=== PATIENT | male | born 1985 | race Two or more races ===

== ENCOUNTER 2025-08-29 07:08 | Emergency (ER) | payer MEDICAID, SELFPAY ==
[2025-08-29] VITALS (7 sets, daily range): BP systolic 98–163; BP diastolic 57–102; PULSE 77–87; RESP 15–21; TEMP 36.8–37.3; O2SAT 95–99; BMI 28.3
--- NOTE | 2025-08-29 07:18 | EKG_ITS ---
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
--- NOTE | 2025-08-29 07:18 | PC.NURSE ---
DR. CROWE ASSESSING PT AT THIS TIME; PER DR. CROWE, NO STROKE ALERT.
--- NOTE | 2025-08-29 07:44 | XR_ITS ---
Exam: Chest 1 view, AP Date and time of exam: 08/29/2025, 7:46 a.m. Comparison: None INDICATION: Chest pain Findings: Normal heart size. No mediastinal adenopathy. No acute fracture No pulmonary edema or pneumonia. Impression: No active disease.
--- NOTE | 2025-08-29 07:45 | EDRME_ITS ---
Rapid Medical Screening Exam [facility] Arrival date/time: 08/29/25 07:08 This is a 39-year-old male that comes into the emergency room with complaints of chest pain. Patient states that he recently went to the dentist and was told that his gums were infected and he needed to have a lot of his teeth pulled. Patient states that they gave him antibiotics, Augmentin and told him to come back in 2 weeks after he finished the antibiotics. Per patient he started taking the Augmentin and he started having chest pain when he took it. Patient is no longer taking the Augmentin and did not take his last 2 doses. He states that chest pain is really bothering him and he cannot sleep. Patient describes it as a chest pressure that does not get better with any intervention. Patient also complaints of bodyaches. Patient denies any past medical history. I have greeted and performed a focused initial assessment of this patient. Initial appropriate labs ordered at this time. A comprehensive ED assessment and evaluation of the patient and analysis of all test and completion of medical decision making process will be conducted by additional ED provider. Chief Complaint: Flu Like Symptoms Time Seen by Provider: 08/29/25 07:19 Vital signs: Vital Signs Temperature 98.7 F 08/29/25 07:18 Pulse Rate 79 08/29/25 07:18 Respiratory Rate 15 08/29/25 07:18 Blood Pressure 142/95 H 08/29/25 07:18 Pulse Oximetry (%) 97 08/29/25 07:18 Oxygen Delivery Method Room Air 08/29/25 07:18
[2025-08-29 08:40] LABS: Influenza A Ag Negative; Influenza B Ag Negative
[2025-08-29 08:44] LABS: Basophils # (Auto) 0.0 Thou/mm3 (0.0-0.2); Basophils % (Auto) 0 % (0-2.5); Eosinophils # (Auto) 0.8 Thou/mm3 (0.0-0.5); Eosinophils % (Auto) 3 % (0-10); Hematocrit 47.2 % (41.0-53.0); Hemoglobin 16.3 g/dL (13.5-16.0); Immature Granulocytes Auto 3.84 Thou/mm3 (0.00-0.00); Lymphocytes # (Auto) 3.7 Thou/mm3 (1.0-4.8); Lymphocytes % (Auto) 12 % (10-50); Mean Corpuscular HGB Conc 34.5 g/dl (31.0-37.0); Mean Corpuscular Hemoglobin 30.3 pg (25.0-35.0); Mean Corpuscular Volume 88 fL (80-100); Monocytes # (Auto) 5.6 Thou/mm3 (0.0-0.8); Monocytes % (Auto) 18 % (0-12); Neutrophils # (Auto) 16.6 Thou/mm3 (1.8-7.7); Neutrophils % (Auto) 54 % (37-80); Nucleated Red Blood Cell # 0.03 Thou/mm3 (0.00-0.00); Nucleated Red Blood Cell % 0 /100 WBC (0); Platelet Count 97 Thou/mm3 (140-440); RDW Standard Deviation 45.1 fL (35.1-43.9); Red Blood Count 5.38 Miln/mm3 (4.50-5.90); White Blood Count 30.6 Thou/mm3 (3.8-10.6)
[2025-08-29 08:50] LABS: B-Type Natriuretic Peptide 26 pg/mL (0-100)
[2025-08-29 08:52] LABS: Alanine Aminotransferase 75 U/L (10-49); Albumin, Serum 4.8 gm/dL (3.5-5.0); Albumin/Globulin Ratio 2.0 (1.2-2.2); Alkaline Phosphatase 360 U/L (46-116); Anion Gap 12 (7-16); Aspartate Amino Transferase 116 U/L (0-34); BUN/Creatinine Ratio 8 Ratio (12-20); Bilirubin,Total 0.5 mg/dL (0.3-1.2); Blood Urea Nitrogen 9 mg/dL (9-23); Calcium 9.7 mg/dL (8.3-10.6); Calcium (Corrected) 9.7 mg/dL (8.5-10.1); Carbon Dioxide 26.4 mMol/L (20.0-31.0); Chloride 105 mMol/L (98-107); Creatinine (Component) 1.2 mg/dL (0.6-1.3); Estimated Creatinine Clearance 77.6 mL/min (>60); Globulin 2.4 gm/dL (2.3-3.5); Glucose 95 mg/dL (74-106); Osmolality,Calculated 283 (275-295); Potassium 4.1 mMol/L (3.4-5.1); Sodium 143 mMol/L (136-145); Total Protein 7.2 gm/dL (5.7-8.2); Troponin I < 0.002 ng/mL (0.0-0.045); eGFR > 60 See Note
[2025-08-29 09:17] LABS: Band Neutrophils (Manual) 16 % (0-6); Basophils (Manual) 1 % (0-2); Eosinophils (Manual) 2 % (0-4); Lymphocytes (Manual) 17 % (20-44); Metamyelocytes (Manual) 6 % (0-0); Monocytes (Manual) 3 % (2-9); Neutrophils (Manual) 55 % (50-70)
[2025-08-29 09:18] LABS: Atypical Lymphs Few
[2025-08-29 09:21] LABS: Path Review Blood Smear Sent to Pathologist
--- NOTE | 2025-08-29 11:08 | PD.EDDENTL ---
ED Dental RME/HPI General Chief complaint: Flu Like Symptoms Stated complaint: GENERALIZED BODY ACHES x5DAYS; NUMB TO LIPS YEST. Time Seen by Provider: 08/29/25 07:19 Arrival date/time: 08/29/25 07:08 RME / HPI RME / HPI Narrative: 08/29/25 07:08 This is a 39-year-old male that comes into the emergency room with complaints of chest pain. Patient states that he recently went to the dentist and was told that his gums were infected and he needed to have a lot of his teeth pulled. Patient states that they gave him antibiotics, Augmentin and told him to come back in 2 weeks after he finished the antibiotics. Per patient he started taking the Augmentin and he started having chest pain when he took it. Patient is no longer taking the Augmentin and did not take his last 2 doses. He states that chest pain is really bothering him and he cannot sleep. Patient describes it as a chest pressure that does not get better with any intervention. Patient also complaints of bodyaches. Patient denies any past medical history. I have greeted and performed a focused initial assessment of this patient. Initial appropriate labs ordered at this time. A comprehensive ED assessment and evaluation of the patient and analysis of all test and completion of medical decision making process will be conducted by additional ED provider. DR. PAUL MAIN ED EVALUATION: 39-year-old male with no known past medical history aside from dental issues presents to the Emergency Department accompanied by his for worsening gum pain and swelling. Symptoms have been present for approximately 3 weeks, with increased pain today. The patient was evaluated by a dentist who performed dental X-rays and reportedly stated that his gums were damaged and he might lose several teeth. Oral antibiotics were prescribed, after which the patient developed a diffuse body rash, primarily on the knees. He denies sore throat, cough, fever, chills, or difficulty swallowing. Related Data Previous Rx's ?Medication ?Instructions ?Recorded clindamycin HCl 300 mg capsule 300 mg PO TID #20 caps 08/29/25 (Cleocin HCl) hydrocodone 5 mg-acetaminophen 325 1 tab PO Q6H PRN pain #10 tabs 08/29/25 mg tablet ibuprofen 600 mg tablet 600 mg PO Q6H PRN pain #30 tabs 08/29/25 Allergies Allergy/AdvReac Type Severity Reaction Status Date / Time No Known Allergies Allergy Verified 08/29/25 07:14 Review of Systems Review of Systems Systems Reviewed: All systems reviewed, normal except as documented Past Medical History Social History SMOKING STATUS: Never smoker SUBSTANCE USE: does not use ALCOHOL: Never ED Exam Narrative Physical exam: GENERAL APPEARANCE: alert and oriented x 4, well-developed, well-nourished, no acute distress VITALS: All vitals were reviewed and the pulse ox is 96% on room air, which is normal according to my interpretation. HEENT: Normocephalic, atraumatic; pupils equal, round, reactive to light; EOMI; mucous membranes pink and moist; oropharynx clear; cavitation noted on upper right tooth, broken tooth on lower right, diffuse gum recession and swelling with exposed tooth root on the lower left; right-sided cervical lymphadenopathy present. NECK: Supple LUNGS: CTABL; no wheezes, no rales, no rhonchi HEART: Regular rate, regular rhythm; normal S1, S2; no murmurs ABDOMEN: non distended; normal BS; soft, no tenderness, no guarding, no rebound; no masses, no organomegaly, no hernia BACK: no CVA tenderness EXTREMITIES: atraumatic; no edema NEUROLOGIC: awake; alert and oriented x4; cranial nerves II-XII grossly intact; no focal sensory or motor deficits PSYCHIATRIC: appropriate mood and affect SKIN: warm, dry, normal color; no rashes Course Quality Measures none Orders Category Date Time Status Bedside COVID-19 Antigen Test NOW Care 08/29/25 07:[address] Screening NOW Care 08/29/25 11:11 Active EKG (ED ONLY) *Do not use* NOW Care 08/29/25 07:[address] soft tissue neck w con Stat Exams 08/29/25 11:11 Completed EKG (ED Only) Stat Exams 08/29/25 07:18 Draft XR chest 1V Stat Exams 08/29/25 07:44 Completed Alcohol, Blood Medical Stat Lab 08/29/25 11:10 Completed BNP [B-Type Natriuretic Peptide] Stat Lab 08/29/25 08:24 Completed Blood Culture (Lab) Stat Lab 08/29/25 11:15 Received CBC Stat Lab 08/29/25 08:24 Completed Comprehensive Metabolic Panel Stat Lab 08/29/25 08:24 Completed Drug Screen,Urine Stat Lab 08/29/25 11:31 Completed Influenza A & B Rapid Panel Stat Lab 08/29/25 07:50 Completed Lactate (Lactic Acid) Stat Lab 08/29/25 11:10 Completed [place] Screen Stat Lab 08/29/25 08:[address] Review Blood Smear Stat Lab 08/29/25 08:24 Completed Procalcitonin Stat Lab 08/29/25 11:10 Completed Troponin I Stat Lab 08/29/25 08:24 Completed UA, C/S IF [Urinalysis, C/S if Indicated] Stat Lab 08/29/25 11:34 Completed Clindamycin 900Mg Ivpb [Cleocin/D5w Ivpb] 900 mg Med 08/29/25 11:07 Discontinued Pre-Mixed [Pre-mixed Bag] 1 bag IV X1 Morphine* Inj Med 08/29/25 11:12 Discontinued 4 mg IVP X1 ONE Morphine* Inj Med 08/29/25 15:36 Discontinued 4 mg IVP X1 ONE Ondansetron Inj [Zofran Inj] Med 08/29/25 11:12 Discontinued 4 mg IVP X1 ONE Ondansetron Inj [Zofran Inj] Med 08/29/25 15:36 Discontinued 4 mg IVP X1 ONE Vital Signs Vital signs: Vital Signs Temperature 98.7 F 08/29/25 07:18 Pulse Rate 79 08/29/25 07:18 Respiratory Rate 15 08/29/25 07:18 Blood Pressure 142/95 H 08/29/25 07:18 Pulse Oximetry (%) 97 08/29/25 07:18 Oxygen Delivery Method Room Air 08/29/25 07:18 Dental / Oral MDM Narrative MDM Narrative:: IPilar am scribing for and in the presence of Dr. Paul. Patient data External records reviewed:: [facility] previous records Clinical information provided by:: patient and spouse Social determinants that could affect healthcare access:: none Patient has the following chronic illnesses:: No known past medical history aside from dental issues. How is presenting disease/condition affected by chronic disease/condition?: no chronic disease Evaluation data The following diagnostics were reviewed and interpreted by me:: lab results, radiology exam(s) and EKG tracing(s) (My interpretation: EKG performed at 0723 hours, sinus rhythm, rate 86, no acute ischemic changes) Lab and/or radiology exams considered but not ordered:: none Interpretation Summary: WBC elevated RADIOLOGY Procedure(s): XR chest 1V Accession Number(s): [id number] cc: Adrián Dunlap MD; Cameron Freire MD; Fina Morrell NP~ Exam: Chest 1 view, AP Date and time of exam: 08/29/2025, 7:46 a.m. Comparison: None INDICATION: Chest pain Findings: Normal heart size. No mediastinal adenopathy. No acute fracture No pulmonary edema or pneumonia. Impression: No active disease. Dictated By: Adrián Dunlap MD Procedure(s): CT soft tissue neck w con Accession Number(s): [id number] cc: Cameron Freire MD; Olaf Shen MD; Rosalinda Paul MD~ Examination: CT soft tissue neck, with intravenous contrast. 2-D coronal reconstructions. 2-D sagittal reconstructions. Date and time of exam : August 29, 2025, 12:18 p.m. INDICATIONS: Sores on the bottom the top of the mouth 3 weeks. CTDI: vol (mGy): 13.9 DLP: (mGycm): 423 Technique: 1.25 mm axial sections of the neck of the obtained. Coronal and sagittal reconstructions have been obtained. Intravenous contrast administered 60 cc Isovue-370. Low dose protocols were performed. One or more of the following dose reduction techniques were used; automated exposure control, adjustment of the mA and/or KV according to patient size, use of iterative reconstruction technique. Findings: Symmetrical nasopharynx oropharynx No tonsillar abscess Minimal chronic left maxillary sinusitis Mild soft tissue tonsillar hypertrophy. Supraglottic region unremarkable Left true and false vocal cord appear mildly prominent No thyroid mass Lung apices clear Normal epiglottis IMPRESSION: No enhancing nasopharyngeal or oropharyngeal mass, no tonsillar abscess Normal epiglottis Mild edema involving the left true and false vocal cord, clinical correlation advised, recommend direct inspection Dictated By: Olaf Shen MD Medications / Prescriptions Medications or Prescriptions considered but not ordered:: none Medication administrations:: Medication Administration History Discontinued Medications Clindamycin Phosphate 900 mg/ (IV Miscellaneous Supplies) 50 mls @ 50 mls/hr IV X1 ONE Stop: 08/29/25 12:06 Last Infusion: 08/29/25 13:32 Dose: Infused Documented By: Admin: 08/29/25 11:22 Dose: 50 mls/hr Documented By: BY Morphine Sulfate (Morphine Sulf Inj 4 Mg/Ml Vial) 4 mg IVP X1 ONE Stop: 08/29/25 11:13 Last Admin: 08/29/25 11:22 Dose: 4 mg Documented By: BY Morphine Sulfate (Morphine Sulf Inj 4 Mg/Ml Vial) 4 mg IVP X1 ONE Stop: 08/29/25 15:37 Ondansetron HCl (Ondansetron Inj 2 Mg/Ml Inj 2 Ml) 4 mg IVP X1 ONE Stop: 08/29/25 11:13 Last Admin: 08/29/25 11:22 Dose: 4 mg Documented By: BY Ondansetron HCl (Ondansetron Inj 2 Mg/Ml Inj 2 Ml) 4 mg IVP X1 ONE Stop: 08/29/25 15:37 see above Consultations Consultation(s) initiated? (list below): No Diagnosis Dental Differential Diagnosis: other (Gingivitis, dental abscess, and antibiotic-induced allergic reaction.) Most likely diagnosis given after review of the tests above:: Dental caries Tooth pain Gingival recession Admission Indicated Admission indicated?: not indicated Admission Request Was there a request for admission?: No Disposition Plan Disposition Plan: Discharge Discharge Attestation Discharge Attestation: The patient and all family members were given an opportunity to ask questions and understood the discharge instructions. Discharge instructions specifically effects, indications for sooner follow up or return to the emergency department, and the expected course of current diagnosis. Patient condition: Stable Discharge Plan Plan Patient Disposition: HOME (Self Care) Prescriptions/Referrals Prescriptions/Med Rec: New clindamycin HCl [Cleocin HCl] 300 mg capsule 300 mg PO TID Qty: 20 0RF hydrocodone-acetaminophen 5-325 mg tablet 1 tab PO Q6H MDD 9 PRN (Reason: pain) Qty: 10 0RF ibuprofen 600 mg tablet 600 mg PO Q6H PRN (Reason: pain) Qty: 30 0RF Referrals: Cameron Freire MD [Primary Care Provider, Family Practice] - In 1 week Problem List Clinical Impression: Dental caries, Tooth pain, Gingival recession Patient/Caregiver Discharge Instructions Education Materials: ED Dental Pain, ED Dental Cavity Print Language: Slovak Stand Alone Forms: Princess Award Info., Patient Portal Info Letter
--- NOTE | 2025-08-29 11:11 | XR_ITS ---
Examination: CT soft tissue neck, with intravenous contrast. 2-D coronal reconstructions. 2-D sagittal reconstructions. Date and time of exam : August 29, 2025, 12:18 p.m. INDICATIONS: Sores on the bottom the top of the mouth 3 weeks. CTDI: vol (mGy): 13.9 DLP: (mGycm): 423 Technique: 1.25 mm axial sections of the neck of the obtained. Coronal and sagittal reconstructions have been obtained. Intravenous contrast administered 60 cc Isovue-370. Low dose protocols were performed. One or more of the following dose reduction techniques were used; automated exposure control, adjustment of the mA and/or KV according to patient size, use of iterative reconstruction technique. Findings: Symmetrical nasopharynx oropharynx No tonsillar abscess Minimal chronic left maxillary sinusitis Mild soft tissue tonsillar hypertrophy. Supraglottic region unremarkable Left true and false vocal cord appear mildly prominent No thyroid mass Lung apices clear Normal epiglottis IMPRESSION: No enhancing nasopharyngeal or oropharyngeal mass, no tonsillar abscess Normal epiglottis Mild edema involving the left true and false vocal cord, clinical correlation advised, recommend direct inspection
[2025-08-29] MEDS: CLINDAMYCIN 900MG IVPB 900 MG in PRE-MIXED 1 BAG 50 MG IV (11:22)
[2025-08-29] MEDS: MORPHINE SULF INJ 4 MG/ML VIAL IVP ×2 (11:22→15:49)
[2025-08-29] MEDS: ONDANSETRON INJ 2 MG/ML INJ 2 ML 4 MG IVP ×2 (11:22→15:49)
[2025-08-29 11:24] LABS: Lactate (Lactic Acid) 1.0 mMol/L (0.4-2.0)
[2025-08-29 11:43] LABS: Collection Type, Urine Clean Catch; Squamous Epithelial Cell,Urine 0 /hpf (0-5)
[2025-08-29 11:54] LABS: Bilirubin,Urine Negative (Negative); Blood,Urine Trace (Negative); Clarity,Urine Clear (Clear/Hazy); Color,Urine Lt-Yellow (Lt Yel-Yel); Culture Indicated,Urine Not Indicated; Glucose, Urine Negative (Negative); Ketones,Urine Negative (Negative); Leukocyte Esterase,Urine Negative (Negative); Nitrite,Urine Negative (Negative); PH,Urine 6.0 (5.0-7.0); Protein,Urine Negative (Neg - Trace); RBC,Urine 2 /hpf (0-3); Specific Gravity,Urine 1.012 (1.001-1.035); Urobilinogen,Urine Negative mg/dL (0.0-1.0); WBC,Urine 1 /hpf (0-5)
[2025-08-29 12:00] LABS: Amphetamine/Methamp Scrn,U Negative (Negative); Barbiturate Screen,Urine Negative (Negative); Benzodiazepines Screen,Urine Negative (Negative); Benzoylecgonine Screen, Ur Negative (Negative); Fentanyl Screen,Urine Negative (Negative); Opiate Screen,Urine Negative (Negative); THC Screen,Urine Negative (Negative)
[2025-08-29 12:25] LABS: Alcohol, Blood Medical < 3.0 mg/dL (0-10.0)
[2025-08-29 12:33] LABS: Procalcitonin 0.16 ng/ml (0.0-0.49)
[2025-08-30 19:11] LABS: Mono Screen Negative (Negative)
== END 2025-08-29 16:01 | disposition home or self-care (01) ==
PROVIDERS: Nurse Practitioner Family; Emergency Provider Emergency Medicine; PCP Family Medicine
DX: K02.9 Dental caries, unspecified (principal); K05.10 Chronic gingivitis, plaque induced
CPT/HCPCS: 36415; 70491; 71045; 80053; 80307; 80320; 81001; 83605; 83880; 84145; 84484; 85025; 86308; 87040; 87502; 87811; 93005; 96365; 96366; 96375; 96376; 99284; A4649; J0736; J2270; J2405; Q9967; G0480

== ENCOUNTER 2025-09-02 03:13 | Emergency (ER) | payer MEDICAID, SELFPAY ==
[2025-09-02] VITALS (15 sets, daily range): BP systolic 138–176; BP diastolic 87–113; PULSE 83–115; RESP 14–23; TEMP 36.4–37; O2SAT 95–98; BMI 28.6
--- NOTE | 2025-09-02 03:18 | EKG_ITS ---
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
--- NOTE | 2025-09-02 03:57 | XR_ITS ---
EXAMINATION: AP chest single view TECHNIQUE: AP portable upright chest single view Date and time: September 02, 2025, 0415 hours, comparison August 29, 2025 INDICATION: Chest pain today. FINDINGS: Poor inspiratory effort Normal heart size No lobar pneumonia or pulmonary edema IMPRESSION: Poor inspiratory effort chest x-ray
--- NOTE | 2025-09-02 03:57 | EKG_ITS ---
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
[2025-09-02 04:14] LABS: Basophils # (Auto) 0.1 Thou/mm3 (0.0-0.2); Basophils % (Auto) 0 % (0-2.5); Eosinophils # (Auto) 0.7 Thou/mm3 (0.0-0.5); Eosinophils % (Auto) 3 % (0-10); Hematocrit 40.2 % (41.0-53.0); Hemoglobin 14.3 g/dL (13.5-16.0); Immature Granulocytes Auto 2.14 Thou/mm3 (0.00-0.00); Lymphocytes # (Auto) 6.9 Thou/mm3 (1.0-4.8); Lymphocytes % (Auto) 25 % (10-50); Mean Corpuscular HGB Conc 35.6 g/dl (31.0-37.0); Mean Corpuscular Hemoglobin 29.8 pg (25.0-35.0); Mean Corpuscular Volume 84 fL (80-100); Monocytes # (Auto) 9.3 Thou/mm3 (0.0-0.8); Monocytes % (Auto) 33 % (0-12); Neutrophils # (Auto) 9.0 Thou/mm3 (1.8-7.7); Neutrophils % (Auto) 32 % (37-80); Nucleated Red Blood Cell # 0.00 Thou/mm3 (0.00-0.00); Nucleated Red Blood Cell % 0 /100 WBC (0); RDW Standard Deviation 42.6 fL (35.1-43.9); Red Blood Count 4.80 Miln/mm3 (4.50-5.90); White Blood Count 28.0 Thou/mm3 (3.8-10.6)
[2025-09-02] MEDS: MORPHINE SULF INJ 4 MG/ML VIAL IVP ×3 (04:32→13:32)
[2025-09-02 04:36] LABS: Alanine Aminotransferase 153 U/L (10-49); Albumin, Serum 4.5 gm/dL (3.5-5.0); Albumin/Globulin Ratio 2.3 (1.2-2.2); Alkaline Phosphatase 462 U/L (46-116); Anion Gap 14 (7-16); Aspartate Amino Transferase 164 U/L (0-34); BUN/Creatinine Ratio 7 Ratio (12-20); Bilirubin,Total 1.6 mg/dL (0.3-1.2); Blood Urea Nitrogen 21 mg/dL (9-23); Calcium 9.6 mg/dL (8.3-10.6); Calcium (Corrected) 9.6 mg/dL (8.5-10.1); Carbon Dioxide 21.1 mMol/L (20.0-31.0); Chloride 101 mMol/L (98-107); Creatinine (Component) 2.9 mg/dL (0.6-1.3); Estimated Creatinine Clearance 32.3 mL/min (>60); Globulin 2.0 gm/dL (2.3-3.5); Glucose 139 mg/dL (74-106); Osmolality,Calculated 276 (275-295); Potassium 4.3 mMol/L (3.4-5.1); Sodium 136 mMol/L (136-145); Total Protein 6.5 gm/dL (5.7-8.2); Troponin I < 0.002 ng/mL (0.0-0.045); eGFR 27 See Note
[2025-09-02 05:04] LABS: Platelet Count 6 Thou/mm3 (140-440)
[2025-09-02 05:06] LABS: Band Neutrophils (Manual) 4 % (0-6); Eosinophils (Manual) 3 % (0-4); Lymphocytes (Manual) 5 % (20-44); Metamyelocytes (Manual) 1 % (0-0); Monocytes (Manual) 6 % (2-9); Myelocytes (Manual) 2 % (0-0); Neutrophils (Manual) 53 % (50-70)
[2025-09-02 05:08] LABS: Other Cell Type 26.0 %
[2025-09-02 05:09] LABS: Basophils (Manual) 0 % (0-2)
[2025-09-02 05:10] LABS: Path Review Blood Smear Sent to Pathologist; Slide Review Platelets confirmed
--- NOTE | 2025-09-02 06:21 | XR_ITS ---
Examination: CT chest, without intravenous contrast. CT abdomen, without intravenous contrast. CT pelvis, without intravenous contrast. 2-D sagittal and coronal reconstructions. 3-D reconstructions. Date and time of exam: September 02, 2025, 0645 hours INDICATIONS: Onset chest and abdominal pain today CTDI vol (mgy) 6.66 DLP (MGycm) 506 Technique: Multiple CT images, 3.0 mm slice thickness, obtained chest, abdomen, pelvis, with the high-resolution 64 slice scanner.. Sagittal and coronal 2-D reconstructions are obtained. 3-D reconstructions Low dose protocols were performed. One or more of the following dose reduction techniques were used; automated exposure control, adjustment of the mA and/or KV according to patient size, use of iterative reconstruction technique. Findings: No thoracic aortic aneurysmal dilatation Pulmonary artery segments do not show significant enlargement No paratracheal tracheobronchial or bronchopulmonary adenopathy No lobar pneumonia or pulmonary edema Hepatomegaly 23 cm Splenomegaly 16 cm Liver is irregular in contour No gallstones No pancreatic or adrenal mass No renal or ureteral calculi, no hydronephrosis Small para-aortic and pelvic lymph nodes, the largest para-aortic lymph node is 9 mm, left common iliac lymph node 6 mm Normal appendix No bowel obstruction Urinary bladder intact No prostatomegaly Large right and small left fat-containing inguinal hernias Mild osteopenia IMPRESSION: No mediastinal lymphadenopathy No pneumonia, pulmonary edema or pleural disease Marked hepatosplenomegaly, liver is irregular in contour Small abdominal and pelvic lymph nodes Differential would include cirrhosis, but also Hodgkin's disease non-Hodgkin's lymphoma, consider PET CT scan follow-up
[2025-09-02] MEDS: MORPHINE SULF INJ 4 MG/ML VIAL 2 MG IVP (06:23)
[2025-09-02] MEDS: NITROGLYCERIN 0.4 MG SUBL BTL #25 SL (06:29)
[2025-09-02] MEDS: ONDANSETRON INJ 2 MG/ML INJ 2 ML 4 MG IVP ×2 (06:32→13:32)
[2025-09-02 06:33] LABS: Lactate (Lactic Acid) 1.2 mMol/L (0.4-2.0)
[2025-09-02 07:02] LABS: D-Dimer 2150 ng/mL (<600)
[2025-09-02 07:11] LABS: Fibrinogen 451 mg/dL (175-375); INR 1.2 (0.9-1.3); Lipase 32 U/L (12-53); Magnesium 1.8 mg/dL (1.6-2.6); Partial Thromboplastin Time 34.7 Seconds (22.0-36.0); Procalcitonin 0.46 ng/ml (0.0-0.49); Prothrombin Time 12.4 Seconds (9.0-12.2); Troponin I < 0.002 ng/mL (0.0-0.045)
[2025-09-02] MEDS: SODIUM CHLORIDE 0.9% 1000 ML 1,000 ML 999 ML IV (07:25)
[2025-09-02 08:43] LABS: Phosphorous 4.4 mg/dL (2.4-5.1)
[2025-09-02 08:47] LABS: Uric Acid 16.2 mg/dL (3.7-9.2)
[2025-09-02 09:15] LABS: Influenza A Ag Negative; Influenza B Ag Negative
[2025-09-02 09:16] LABS: LDH (Lactate Dehydrogenase) > 4500 U/L (120-246)
--- NOTE | 2025-09-02 10:25 | EDNOTE_ITS ---
ED Chest Pain RME/HPI General Chief Complaint: Chest Pain Stated Complaint: Chest Pain-2 days ago diagnosed with leukemia Time Seen by Provider: 09/02/25 06:07 Arrival date/time: 09/02/25 03:13 RME / HPI RME / HPI narrative: 39 year old male with no known chronic medical history presents to the ED for evaluation of substernal chest pain beginning 5 days ago. Pain described as pressure in sensation, rating 8/10 in severity. Patient states the chest pain began shortly after starting Augmentin, that was prescribed by dentist for gum infection, and did not complete due to the chest pain. Patient states he was evaluated here 4 days ago for worsening gum pain and swelling and during that time also had some chest pain. Denies fevers. Related Data Previous Rx's ?Medication ?Instructions ?Recorded clindamycin HCl 300 mg capsule 300 mg PO TID #20 caps 08/29/25 (Cleocin HCl) hydrocodone 5 mg-acetaminophen 325 1 tab PO Q6H PRN pa in #10 tabs 08/29/25 mg tablet ibuprofen 600 mg tablet 600 mg PO Q6H PRN pain #30 t abs 08/29/25 Allergies Allergy/AdvReac Type Severity Reaction Status Date / Time clindamycin Allergy Severe bleeding Verified 09/02/25 13:29 amoxicillin Allergy Intermediate Hives Verified 09/02/25 13:29 hydrocodone Allergy Intermediate Chest Pain Verified 09/02/25 13:29 Review of Systems Review of Systems Systems Reviewed: All systems reviewed, normal except as documented Past Medical History Past Medical History NEUROLOGIC: Negative Neurological Disorders CARDIAC: Negative Cardiac Disorders RESPIRATORY: Negative Respiratory Disorders GASTROINTESTINAL: Negative Gastrointestinal Disorders GENITOURINARY: Negative Genitourinary Disorders MUSCULOSKELETAL: Negative Musculoskeletal Disorders ENT: Negative History of ENT Problems ENDOCRINE: Negative Endocrine Disorders HEMATOLOGIC: Negative Blood Disorders Surgical History SURGICAL: Negative Endocrine Surgery or Nephrectomy Social History SMOKING STATUS: Former smoker SUBSTANCE USE: does not use ED Exam Narrative Physical exam: GENERAL APPEARANCE: alert and oriented x 4, well-developed, well-nourished, no acute distress HEENT: Normocephalic, atraumatic; pupils equal, round, reactive to light; EOMI; mucous membranes pink, moist; oropharynx clear NECK: Supple LUNGS: CTABL; no wheezes, no rales, no rhonchi HEART: Regular rate, regular rhythm; normal S1, S2; no murmurs ABDOMEN: non distended; normal BS; soft, no tenderness, no guarding, no rebound; no masses, no organomegaly, no hernia BACK: no CVA tenderness EXTREMITIES: atraumatic; no edema NEUROLOGIC: awake; alert and oriented x4; cranial nerves II-XII grossly intact; no focal sensory or motor deficits PSYCHIATRIC: appropriate mood and affect SKIN: warm, pale, diaphoretic; diffuse petechiae Course Course Course Narrative: 39 year old male presented to the ED today for chest pain. Patient was evaluated here on 08/29/2025 and during that time labs showed WBC was 30, Plt count 97 and blood was sent to pathology for blood smear. The pathology report for 08/29/2025 shows blasts appearing cells accounting for 22% of the WBCs suspicious for acute/chronic leukemia. Repeat blood work today shows WBC 28 and Plt count is 6. The blood smear performed today showing blasts are accounting for 27% of the WBCs most consistent with acute leukemia. FFP and PRBC ordered. 0730: I spoke with oyster worker Dr. Li. Discussed patients PMHx, HPI, ED course, exam findings, labs results. Will come evaluate the patient. 1100: Called by pathologist who relayed blood smear pathology report as noted above. 1102: I spoke with ICU team who advised the patient can be admitted to the hospitalist team and if needed can place a dialysis catheter for dialysis. I spoke with hospitalist team A for admission. 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 1128: I spoke with our transfer nurse who will begin the transfer. 1132: I called and left message for our local scientific database curator Dr. Larson. 1133: I called oncologist Dr. Myrick, no answer and voicemail box is full. 1136: I spoke with scientific database curator Dr. Larson. States we do not treat leukemia here and will require transfer. 1152: I spoke with transfer nurse Evon at [facility]. Discussed patients PMHx, HPI, ED course, exam findings, labs results. 1255: I had a long discussion with patient and at bedside. We reviewed todays results and plan to transfer. They are in agreement. 1300: Notified by transfer nurse that the patient has been accepted by Dr. Griffin, ER to ER. Quality Measures none Orders Category Date Time Status Bedside COVID-19 Antigen Test NOW Care 09/02/25 06:28 Active EKG (ED ONLY) *Do not use* NOW Care 09/02/25 03:18 Completed EKG (ED ONLY) *Do not use* NOW Care 09/02/25 03:57 Completed EKG (ED ONLY) *Do not use* NOW Care 09/02/25 06:16 Completed Referral - Pc Installation Engineer Stat Cons 09/02/25 11:[address] chest abdomen pelvis wo Stat Exams 09/02/25 06:21 Completed EKG (ED Only) Stat Exams 09/02/25 03:18 Draft EKG (ED Only) Stat Exams 09/02/25 03:57 Draft EKG (ED Only) Stat Exams 09/02/25 06:15 Ordered XR chest 1V portable Stat Exams 09/02/25 03:57 Completed CBC Stat Lab 09/02/25 04:00 Completed CMP [Comprehensive Metabolic Panel] Stat Lab 09/02/25 04:00 Completed D-Dimer Stat Lab 09/02/25 04:00 Completed FFP [Fresh Frozen Plasma] Stat Lab 09/02/25 07:21 Completed FLU A&B [Influenza A & B Rapid Panel] Stat Lab 09/02/25 08:32 Completed Fibrinogen Stat Lab 09/02/25 06:26 Completed Haptoglobin* Stat Lab 09/02/25 08:21 Received LDH (Lactate Dehydrogenase) Stat Lab 09/02/25 06:26 Completed Lactate (Lactic Acid) Stat Lab 09/02/25 06:26 Completed Lipase Stat Lab 09/02/25 06:26 Completed Magnesium Stat Lab 09/02/25 06:26 Completed PT [Prothrombin Time with INR] Stat Lab 09/02/25 06:26 Completed PTT [Partial Thromboplastin Time] Stat Lab 09/02/25 06:26 Completed Path Review Blood Smear Stat Lab 09/02/25 04:00 Completed Pheresis Platelets Stat Lab 09/02/25 07:21 Completed Phosphorous Stat Lab 09/02/25 06:26 Completed Procalcitonin Stat Lab 09/02/25 06:26 Completed Troponin I Stat Lab 09/02/25 04:00 Completed Troponin I Stat Lab 09/02/25 06:26 Completed Type and Screen Stat Lab 09/02/25 07:21 Completed UA, C/S IF [Urinalysis, C/S if Indicated] Stat Lab 09/02/25 10:18 Completed Uric Acid Stat Lab 09/02/25 06:26 Completed Urine Culture Stat Lab 09/02/25 10:18 Received Morphine* Inj Med 09/02/25 06:15 Discontinued 2 mg IVP X1 ONE Morphine* Inj Med 09/02/25 04:09 Discontinued 4 mg IVP X1 ONE Morphine* Inj Med 09/02/25 08:00 Discontinued 4 mg IVP X1 ONE Morphine* Inj Med 09/02/25 13:24 Once 4 mg IVP X1 ONE Nitroglycerin [Nitrostat 1/150] Med 09/02/25 06:15 Discontinued 0.4 mg SL X1 ONE Ondansetron Inj [Zofran Inj] Med 09/02/25 06:15 Discontinued 4 mg IVP X1 ONE Ondansetron Inj [Zofran Inj] Med 09/02/25 13:24 Once 4 mg IVP X1 ONE Sodium Chloride 0.9% 1000 ml [Ns] 1,000 ml Med 09/02/25 06:23 Discontinued IV 999 mls/hr Vital Signs Vital signs: Vital Signs Temperature 97.8 F 09/02/25 03:37 Pulse Rate 95 09/02/25 03:37 Respiratory Rate 23 H 09/02/25 03:37 Blood Pressure 138/99 H 09/02/25 03:37 Pulse Oximetry (%) 96 09/02/25 03:37 Oxygen Delivery Method Room Air 09/02/25 03:37 Pulse ox is 96% on room air which is adequate. Chest Pain MDM Narrative MDM Narrative:: Sachi León am scribing for and in the presence of Dr. Paul. Patient data External records reviewed:: [facility] previous records Clinical information provided by:: patient Social determinants that could affect healthcare access:: none Patient has the following chronic illnesses:: None reported How is presenting disease/condition affected by chronic disease/condition?: no chronic disease Evaluation data The following diagnostics were reviewed and interpreted by me:: lab results, radiology exam(s) and EKG tracing(s) (EKG @ 06:21 AM. Normal sinus rhythm, rate 89, no STEMI) Lab and/or radiology exams considered but not ordered:: None Interpretation Summary: Ordering Physician: Juventino Austin DO Date of Service: 09/02/25 Procedure(s): XR chest 1V portable Accession Number(s): [id number] cc: Olaf Shen MD; NO PRIMARY/FAMILY,PHYSICIAN; Juventino Austin DO~ EXAMINATION: AP chest single view TECHNIQUE: AP portable upright chest single view Date and time: September 02, 2025, 0415 hours, comparison August 29, 2025 INDICATION: Chest pain today. FINDINGS: Poor inspiratory effort Normal heart size No lobar pneumonia or pulmonary edema IMPRESSION: Poor inspiratory effort chest x-ray Dictated By: Olaf Shen MD Signed By: <Electronically signed by Olaf Shen MD in OV> 09/02/25 0751 Ordering Physician: Rosalinda Paul MD Date of Service: 09/02/25 Procedure(s): CT chest abdomen pelvis wo Accession Number(s): [id number] cc: Olaf Shen MD; Rosalinda Paul MD~ Examination: CT chest, without intravenous contrast. CT abdomen, without intravenous contrast. CT pelvis, without intravenous contrast. 2-D sagittal and coronal reconstructions. 3-D reconstructions. Date and time of exam: September 02, 2025, 0645 hours INDICATIONS: Onset chest and abdominal pain today CTDI vol (mgy) 6.66 DLP (MGycm) 506 Technique: Multiple CT images, 3.0 mm slice thickness, obtained chest, abdomen, pelvis, with the high-resolution 64 slice scanner.. Sagittal and coronal 2-D reconstructions are obtained. 3-D reconstructions Low dose protocols were performed. One or more of the following dose reduction techniques were used; automated exposure control, adjustment of the mA and/or KV according to patient size, use of iterative reconstruction technique. Findings: No thoracic aortic aneurysmal dilatation Pulmonary artery segments do not show significant enlargement No paratracheal tracheobronchial or bronchopulmonary adenopathy No lobar pneumonia or pulmonary edema Hepatomegaly 23 cm Splenomegaly 16 cm Liver is irregular in contour No gallstones No pancreatic or adrenal mass No renal or ureteral calculi, no hydronephrosis Small para-aortic and pelvic lymph nodes, the largest para-aortic lymph node is 9 mm, left common iliac lymph node 6 mm Normal appendix No bowel obstruction Urinary bladder intact No prostatomegaly Large right and small left fat-containing inguinal hernias Mild osteopenia IMPRESSION: No mediastinal lymphadenopathy No pneumonia, pulmonary edema or pleural disease Marked hepatosplenomegaly, liver is irregular in contour Small abdominal and pelvic lymph nodes Differential would include cirrhosis, but also Hodgkin's disease non-Hodgkin's lymphoma, consider PET CT scan follow-up Dictated By: Olaf Shen MD Signed By: <Electronically signed by Olaf Shen MD in OV> 09/02/25 0720 Medications / Prescriptions Medications or Prescriptions considered but not ordered:: None Medication administrations:: Medication Administration History Morphine Sulfate (Morphine Sulf Inj 4 Mg/Ml Vial) 4 mg IVP X1 ONE Stop: 09/02/25 13:25 Ondansetron HCl (Ondansetron Inj 2 Mg/Ml Inj 2 Ml) 4 mg IVP X1 ONE Stop: 09/02/25 13:25 Discontinued Medications Sodium Chloride (Ns) 1,000 mls @ 999 mls/hr IV .Q1H1M ONE Stop: 09/02/25 07:23 Last Infusion: 09/02/25 08:26 Dose: Infused Documented By: Admin: 09/02/25 07:25 Dose: 999 mls/hr Documented By: DAVDI Morphine Sulfate (Morphine Sulf Inj 4 Mg/Ml Vial) 4 mg IVP X1 ONE Stop: 09/02/25 04:10 Last Admin: 09/02/25 04:32 Dose: 4 mg Documented By: AC Morphine Sulfate (Morphine Sulf Inj 4 Mg/Ml Vial) 2 mg IVP X1 ONE Stop: 09/02/25 06:16 Last Admin: 09/02/25 06:23 Dose: 2 mg Documented By: AC Morphine Sulfate (Morphine Sulf Inj 4 Mg/Ml Vial) 4 mg IVP X1 ONE Stop: 09/02/25 08:01 Last Admin: 09/02/25 08:12 Dose: 4 mg Documented By: DAVID Nitroglycerin (Nitroglycerin 0.4 Mg Subl Btl #25) 0.4 mg SL X1 ONE Stop: 09/02/25 06:16 Last Admin: 09/02/25 06:29 Dose: 0.4 mg Documented By: LEANNE Comments: 1 of 3 tablets Ondansetron HCl (Ondansetron Inj 2 Mg/Ml Inj 2 Ml) 4 mg IVP X1 ONE; Protocol Stop: 09/02/25 06:16 Last Admin: 09/02/25 06:32 Dose: 4 mg Documented By: LEANNE See above Consultations Consultation(s) initiated? (list below): Yes Consultation #1 (Physician, Specialty, Details): See above Diagnosis Chest Pain Differential Diagnosis: atypical chest pain, st elevation myocardial infarction, costochondritis, chest pain and biliary colic Most likely diagnosis given after review of the tests above:: Acute leukemia Thrombocytopenia Admission Indicated Admission indicated?: indicated Explain why admission is indicated or not indicated:: Admission was indicated. However, we do not treat acute leukemia here and would require txfer to facility with heme-onc. Admission Request Was there a request for admission?: No Disposition Plan Disposition Plan: Transfer Critical Care Time Critical Care Time Critical Care Time: Yes Total Critical Care Time (min.): 45 Attestation: The high probability of sudden, clinically significant deterioration in the patient's condition required the highest level of my preparedness to intervene urgently. The services I provided to this patient were to treat and/or prevent clinically significant deterioration. Services included the following: chart data review, reviewing nursing notes and/or old charts, documentation time, job service consultant collaboration regarding findings and treatment options, medication orders and management, direct patient care, vital sign assessments and ordering, interpreting and reviewing diagnostic studies and lab tests. Aggregate critical care time includes only time during which I was engaged in work directly related to the patient's care, as described above, whether at bedside or elsewhere in the Emergency Department. It did not include time spent performing other reported procedures or the services of residents, students, nurses or physician assistants. Discharge Plan Plan Patient Disposition: [facility] Facility Pt Being Transferred to: [facility] Service Needed for Transfer: Oncology Discharge Disposition comment: Dr. Griffin Prescriptions/Referrals Prescriptions/Med Rec: No Action clindamycin HCl [Cleocin HCl] 300 mg capsule 300 mg PO TID Qty: 20 0RF hydrocodone-acetaminophen 5-325 mg tablet 1 tab PO Q6H MDD 9 PRN (Reason: pain) Qty: 10 0RF ibuprofen 600 mg tablet 600 mg PO Q6H PRN (Reason: pain) Qty: 30 0RF Referrals: No Primary/Family,Physician [Primary Care Provider] - In 1 week Problem List Clinical Impression: Acute leukemia, Thrombocytopenia Patient/Caregiver Discharge Instructions Print Language: Sinhala Stand Alone Forms: Princess Award Info., Patient Portal Info Letter
[2025-09-02 10:36] LABS: Collection Type, Urine Clean Catch
[2025-09-02 10:53] LABS: Bacteria,Urine Rare; Bilirubin,Urine Negative (Negative); Blood,Urine 2+ (Negative); Clarity,Urine Clear (Clear/Hazy); Color,Urine Yellow (Lt Yel-Yel); Glucose, Urine Negative (Negative); Ketones,Urine Negative (Negative); Leukocyte Esterase,Urine Negative (Negative); Nitrite,Urine Negative (Negative); PH,Urine 6.0 (5.0-7.0); Protein,Urine 1+ (Neg - Trace); RBC,Urine 32 /hpf (0-3); Specific Gravity,Urine 1.014 (1.001-1.035); Squamous Epithelial Cell,Urine < 1 /hpf (0-5); Urobilinogen,Urine Negative mg/dL (0.0-1.0); WBC,Urine 11 /hpf (0-5)
[2025-09-02 11:03] LABS: Culture Indicated,Urine Yes
--- NOTE | 2025-09-02 11:46 | ESCONSULT_ITS ---
<Statement entered by Blair Menezes MD - 09/02/25 15:02> This patient is a 39-year-old male with no past medical history presented to the ED with substernal chest pain and diaphoresis started this morning. He described his pain as pressure-like rated as 8/10 radiating to jaw. Patient was taking amoxicillin for dental infection before he came to the ED on 08/29. He was started on clindamycin on 08/29 while he was seen in the ED with a white count of 30,000. Patient reported that he started having oral bleeding with petechiae in his lower extremities bilateral for last 2 days. He was still able to make good urine. He endorsed chills some previous days. Denied any cough, shortness of breath, flank pain, blood in stool or any other complaint. Peripheral smear was significant for blast cells accounting for 22% from 08/29 went up to 27% suspicious for acute/chronic leukemia. Patient was awake,alert and oriented x 3 with stable vitals. Labs showed elevated white count 28, platelets of 6. Peripheral smear showed blasts accounting 27% WBC. Kidney function showed LEEANNA with elevated BUN and creatinine 2.9 with baseline 0.6. Uric acid 16.2. T. bili 1.6. Transmitis with Elevated AST 164 and ALT 153, ALP 462. LDH greater than 4500. UA showed 1+ proteins, 2+ blood, 32 RBC and 11 WBC. EKG showed sinus rhythm. Chest x-ray showed poor inspiratory effort no pneumonia. CT chest abdomen pelvis showed marked hepatosplenomegaly, liver irregular and small abdominal pelvic lymph nodes. Patient received morphine and Zofran. ICU was consulted for concern of blast crisis and severe thrombocytopenia with active bleeding from mouth. Examination was significant for bleeding oral ulcers and petechiae in lower extremity. He also was noted to have palpable submental and submandibular lymph nodes. We recommended to give fluid resuscitation, start broad-spectrum antibiotics with MRSA coverage, Magic mouthwash for oral ulcers and Dilaudid for pain. Recommended oncology and nephrology consult. If kidney functions start deteriorating recommended to transfuse platelets and will place a dialysis catheter and start dialysis as necessary. Strict JAS's. For concern of dress syndrome, recommended stop clindamycin, transfusion of platelets and supportive care. For tumor lysis syndrome and blast crisis patient needs urgent chemotherapy with pain management. was updated regarding the plan at bedside. If patient's LFTs start trending up consider adding steroids for inflammatory response. Follow-up with blood cultures and MRSA screen. Additionally, we recommended to repeat labs in the afternoon to evaluate for kidney functions. I discussed and supervised with the internal wholesaler physician who took care of this patient. I personally saw and examined the patient. I agree with most of the assessment and plan. Disclaimer: Despite multiple revisions, due to the dictation software being used, the document bellow may not be free of grammatical errors including phonetic/typographic errors. However, this does not deter from our commitment to providing health care in the patient's best interest in mind. Plan of care discussed with attending Physician Dr.Ahmad Blair Menezes MD PGY-3 HPI Data of Consult Attending Provider: Edis Li Primary Care Provider: Physician No Primary/Family Consult Narrative Reason for consult: Concern for blast crisis, severe Thrombocytopenia History of present illness: Mr. [place] is a 39 year old Indian speaking male with no known past medical history presents to the ED for evaluation of substernal chest pain beginning 5 days ago. Pain described as pressure in sensation, rating 8/10 in severity. Patient states the chest pain began shortly after starting Augmentin, that was prescribed by dentist for gum infection which started 3 weeks ago that has progressed, and did not complete due to the chest pain. Patient states he was evaluated here 4 days ago for worsening gum pain and swelling and during that time also had some chest pain, was given clindamycin 900 mg x1 from ED at that time. States he has been having oral bleeding and petechiae over his lower extremities bilaterally for the last 2 days. States he has been making normal amounts of urine. Endorses Chills previous days. Denies fevers, cough, shortness of breath, abdominal/flank pain, blood in stool, dysuria/hematuria. On last visit to ED 08/29/2025, patient had peripheral smear done showing blast cells are present, accounting for 22% of the wbc's, suspicious for acute/chronic leukemia Past Medical History: above Family History: Denies any family hx of cancer Surgical History: Denies surgical history Social History: Endorses smoking history, stopped years ago; Lives with ; Denies recent travel Current Medications: Ibuprofen 800 mg q6 since last sunday Allergies: Clindamycin (suspected due to recent administration with onset of symptoms occuring shortly after) ED Course: -Initial vitals showed temperature 97.8 ?F, 95 bpm heart rate, respiratory rate 23, 96% on room air, blood pressure 138/99 -Labs significant for white blood cell count 28.0, platelets of 6, peripheral smear showing blasts, accounting for 27% of the white blood cells, most consistent with acute leukemia, severe thrombocytopenia; PT 12.4, fibrinogen 451, D-dimer 2150, creatinine 2.9, eGFR 27, glucose 139, uric acid 16.2, total bilirubin 1.6, AST 164, ALT 153, alk phos 462, LDH greater than 4500, urinalysis showed 1+ protein, 2+ blood, 32 RBCs, 11 WBCs -Imaging included EKG showed normal sinus rhythm x 2, chest x-ray showing poor inspiratory effort chest x-ray no pneumonia or edema noted, CT chest/abdomen/pelvis showed no mediastinal lymphadenopathy, no pneumonia, no pulmonary edema, no pleural disease, marked hepatosplenomegaly, liver is irregular in contour, small abdominal and pelvic lymph nodes -In the ED the patient was given multiple morphine pushes for pain, nitroglycerin sublingual, Zofran, 1 L IV fluid bolus. -ICU consulted for concern for blast crisis and severe thrombocytopenia. Review of Systems Review of systems otherwise negative except what is mentioned above. cc:: cc: Exam Vital Signs Temp Pulse Resp BP Pulse Ox O2 Del Method 98.0 F 103 H 16 148/97 H 95 Room Air 09/02/25 11:25 09/02/25 11:25 09/02/25 11:25 09/02/25 11:25 09/02/25 11:10 09/02/25 10:42 Narrative Exam General: No acute distress; A&Ox3 Skin: diffuse petechiae, warm, dry, intact. HENT: NCAT, EOMI/PERRL, not icteric. External ears normal. No rhinorrhea. Blood noted in mouth; Moist mucous membranes Cardiovascular: Tachycardic, regular rhythm, no murmur, +S1/S2. Respiratory: Lungs CTAB GI: Soft, nontender, non-distended. No guarding or rebound tenderness. : No suprapubic tenderness. No flank tenderness bilaterally. Extremities: no edema, no cyanosis, no clubbing. Extremity pulses present Neuro: Grossly nonfocal. Moving all 4 extremities. CN not formally tested but appear grossly intact. Psychiatric: Cooperative, appropriate affect. Results Labs 09/02/25 04:00 09/02/25 04:00 Labs: Short CBC 09/02/25 Range/Units 04:00 WBC 28.0 H (3.8-10.6) Thou/mm3 Hgb 14.3 D (13.5-16.0) g/dL Hct 40.2 L (41.0-53.0) % Plt Count 6 L* D (140-440) Thou/mm3 BMP 09/02/25 04:00 Sodium 136 Potassium 4.3 Chloride 101 Carbon Dioxide 21.1 BUN 21 Creatinine 2.9 H D Glucose 139 H Calcium 9.6 Cardiac Enzymes 09/02/25 09/02/25 Range/Units 04:00 06:26 Troponin I < 0.002 < 0.002 (0.0-0.045) ng/mL Liver Function 09/02/25 Range/Units 04:00 Total Bilirubin 1.6 H (0.3-1.2) mg/dL AST 164 H (0-34) U/L ALT 153 H (10-49) U/L Alkaline Phosphatase 462 H (46-116) U/L Albumin 4.5 (3.5-5.0) gm/dL Urine 09/02/25 Range/Units 10:18 Urine Color Yellow (Lt Yel-Yel) Urine Clarity Clear (Clear/Hazy) Urine pH 6.0 (5.0-7.0) Ur Specific [place] 1.014 (1.001-1.035) Urine Protein 1+ A (Neg - Trace) Urine Glucose (UA) Negative (Negative) Quality Measures Quality Measures VTE prophylaxis Medications Home Medications and Allergies Allergies Allergy/AdvReac Type Severity Reaction Status Date / Time clindamycin Allergy Severe bleeding Verified 09/02/25 13:29 amoxicillin Allergy Intermediate Hives Verified 09/02/25 13:29 hydrocodone Allergy Intermediate Chest Pain Verified 09/02/25 13:29 Visit Medications Discontinued Medications Sodium Chloride (Ns) 1,000 mls @ 999 mls/hr IV .Q1H1M ONE Stop: 09/02/25 07:23 Last Infusion: 09/02/25 08:26 Dose: Infused Morphine Sulfate (Morphine Sulf Inj 4 Mg/Ml Vial) 4 mg IVP X1 ONE Stop: 09/02/25 04:10 Last Admin: 09/02/25 04:32 Dose: 4 mg Morphine Sulfate (Morphine Sulf Inj 4 Mg/Ml Vial) 2 mg IVP X1 ONE Stop: 09/02/25 06:16 Last Admin: 09/02/25 06:23 Dose: 2 mg Morphine Sulfate (Morphine Sulf Inj 4 Mg/Ml Vial) 4 mg IVP X1 ONE Stop: 09/02/25 08:01 Last Admin: 09/02/25 08:12 Dose: 4 mg Nitroglycerin (Nitroglycerin 0.4 Mg Subl Btl #25) 0.4 mg SL X1 ONE Stop: 09/02/25 06:16 Last Admin: 09/02/25 06:29 Dose: 0.4 mg Ondansetron HCl (Ondansetron Inj 2 Mg/Ml Inj 2 Ml) 4 mg IVP X1 ONE; Protocol Stop: 09/02/25 06:16 Last Admin: 09/02/25 06:32 Dose: 4 mg Assessment & Plan Plan Mr. [place] is a 39 year old Indian speaking male with no known past medical history presents to the ED for evaluation of substernal chest pain beginning 5 days ago. ICU consulted for concern for blast crisis and severe thrombocytopenia. Neurology no acute problems Cardiovascular #Tachycardia #Chest Pain -Recommend Dilaudid for pain (along with oral pain, below) -rest of management per primary team Respiratory #Palpable Lymph Nodes DDx: suspecting due to CML/AML Dx: -L.N's palpable on neck/jaw region at superficial cervical & submandibular area. -WBC 28.0 with peripheral smear showing blasts, accounting for 27% of the white blood cells, most consistent with acute leukemia. -CT CAP showed no mediastinal lymphadenopathy, no pneumonia, no pulmonary edema, no pleural disease, marked hepatosplenomegaly, liver is irregular in contour, small abdominal and pelvic lymph nodes Rx: -Recommend Oncology consult; will very likely need chemotherapy GI and F/E/N #Oral Ulcers Patient had gum infection for 3 weeks, saw a dentist, started on Augmentin, but didn't finish due to chest pain. Seen in ED on 08/29 for chest pain, was given clindamycin, had oral bleeding & petechiae 2 days later. Dx: -Exam showed blood in mouth, ulcers present. Rx: -Recommend broad spectrum antibiotics with MRSA coverage such as Zosyn & Vancomycin -Recommend magic mouth wash & Dilaudid for pain #Transaminitis DDx: TLS vs Leukemic infiltration of liver vs less likely sepsis related Dx: -AST 164, ALT 153, Alk Phos 462, T Bili 1.6 -CT CAP showed marked hepatosplenomegaly, liver is irregular in contour, small abdominal and pelvic lymph nodes Rx: -If LFT's trend up or any inflammatory markers increase, recommend steroids -Recommend fluid resuscitation Renal #LEEANNA DDx: pre-renal vs intra-renal (TLS). -Patient reports making normal amounts of urine. Creatinine elevated to 2.9 with >4500 LDH, elevated Uric Acid 16.2, but has normal potassium and phosphate. - states he has been taking ibuprofen 800 mg q6hrs since last Sunday Dx: -Creatinine elevated to 2.9 Rx: -Recommend fluid resuscitation; will recheck BMP in afternoon to see if kidneys were responsive to fluid. -Recommend Nephrology consult Heme #Blast crisis #Concern for AML/CML #Tumor Lysis Syndrome #Thrombocytopenia #Concern for Dress Syndrome Patient likely allergic to clindamycin and developed petechiae and thrombocytopenia shortly afte Concern for dress syndrome, supportive treatment for low platelets Stopped clindamycin, now documented as allergic reaction Dx: -WBC 28.0 with peripheral smear showing blasts, accounting for 27% of the white blood cells, most consistent with acute leukemia. -LDH >4500, uric acid elevated at 16.2, normal potassium/phosphate. -PT 12.4, fibrinogen 451, D-dimer 2150 -Concern for DRESS, however, RegiSCAR for DRESS score indicated that DRESS is less likely Rx: -Recommend stopping clindamycin forever (added to chart as allergic reaction) -Recommend transfusions for thrombocytopenia -Recommend supportive care as appropriate -Recommend Heme/Onc consult -Recommend SCD's for DVT prophylaxis due to thrombocytopenia -BMP ordered for afternoon Endo no acute problems ID #Oral Ulcers As above in GI Thank you for letting us be apart of the care team for Mr. [place] Patient plan of care was discussed with the attending physician, Dr. Li & senior resident Dr. Riri Melton MD PGY-1 Attending Provider Attestation/Addendum Patient seen and examined with the above resident, Giuseppe Melton MD. I agree with the findings, assessment, and plan of care except for any differences below. 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 Should be listed as allergy. Now with oral mucosal involvement, peticheal rash, lymphadenopathy, thrombocytopenia, elevated LFTS and eosinophilia. DIC excluded and with normal K and phos, high LDH and uric acid seen in high cell turnover state. Patient does not require ICU care at this time, hemodynamically stable with no evidence of bleeding. Evaluation by hematology if available, otherwise agree with transfer to external facility. If he stays, transfuse platelets, fluid resuscitate, check electrolytes in afternoon and if HD needed nephrology consult with ICU to place HD catheter. I remain available for any needs should they arise. Thank you for allowing me to participate in the care of this patient.
--- NOTE | 2025-09-02 11:55 | PC.CM ---
Addendum entered by Ora Lawrence RN 09/02/25 12:51: 1250 I received a call from Evon at [facility]. She states patient has been accepted by Dr. Griffin and will go to [facility] ED. Number to call and give report [phone]. I will call [facility] and set up transport. [phone] I called [facility] and spoke to Evon. She states she has a call out to her doctor and she is waiting for a call back. Original Note: [id number] I recived a call from Evon at [facility] and I connected her with Dr. Paul. She was going to present patient to sylvain KENNEY and call me back. I started packet and made a CD. 1136 I received a referral to transfer patient for hematology/oncology. I contacted [facility] and I faxed over information.
--- NOTE | 2025-09-02 13:09 | PC.CC ---
[id number]-REACH contacted [facility] to inform that they will need to decline the transport at this time due to weather conditions. However, REACH will call back at 1515 for an update at that time and if the weather allows for a safe transport.
--- NOTE | 2025-09-02 13:57 | PC.NURSE ---
PATIENT WAS TRANSFERRED TO [facility] FOR ACUTE TREATMENT OF POSSIBLE LEUKEMIA, PATIENT AND AT BEDSIDE MADE AWARE THAT PATIENT NEEDS HEMATOLOGY AND ONCOLOGY. PATIENT AND BOTH IN AGREEMENT WITH PLAN FOR TRANSFER. PATIENT GIVEN IV MORPHINE AND ZOFRAN BEFORE DISCHARGE.
--- NOTE | 2025-09-02 14:23 | PC.NURSE ---
REPORT CALLED TO MAGDALENA RN AT [facility] ED. PER MAGDALENA NO FURTHER QUESTIONS
[2025-09-09 06:24] LABS: Haptoglobin* 225 mg/dL (43-212)
== END 2025-09-02 13:33 | disposition short-term general hospital (02) ==
PROVIDERS: Emergency Medicine; Student in an Organized Health Care Education/Training Program; Emergency Provider Emergency Medicine
DX: D65 Disseminated intravascular coagulation [defibrination syndrome] (principal); C95.00 Acute leukemia of unspecified cell type not having achieved remission
CPT/HCPCS: 36415; 71045; 71250; 74176; 80053; 81001; 83010; 83605; 83615; 83690; 83735; 84100; 84145; 84484; 84550; 85025; 85379; 85384; 85610; 85730; 86850; 86900; 86901; 86927; 86965; 87086; 87502; 87811; 93005; 96361; 96374; 96375; 96376; 99285; J2270; J2405; J7030; P9035; P9060; A9270